=== PATIENT | male | born 1950 | race Caucasian/White ===

== ENCOUNTER 2020-04-17 10:51 | Inpatient (IN) ==
--- NOTE | 2020-04-17 11:55 | Emergency Department Note ---
Impression & Plan NSTEMI (non-ST elevated myocardial infarction), Precordial chest pain ED Provider Note NAME: VASQUEZ RYAN AGE: 69 SEX: M : 1950 ARRIVES VIA: Walk-In INFORMANT: [Patient] ED PROVIDER(S): [Norm Abraham MD] CHIEF COMPLAINT: Chest pain HISTORY OF PRESENT ILLNESS: Patient is a 69-year-old male who presents to the ED with a bout of chest pain that occurred 2 days ago. The pain came on at 2 AM, it woke him from sleep. The pain was pretty severe across the chest and went down both arms, his left arm was more painful than the right. He was not short of breath. There was no pleuritic pain. No nausea or sweating. The pain persisted with him throughout the entire day on but by the evening time, it seemed to go away. The patient has not had exertional chest pain or dyspnea. He has no known issues with his heart although his brother and father both have/had heart disease. The patient states that the day before he had his chest pain, he was swinging a mallet for a while but, this is not unusual activity for him really. He had no pain in his chest and he was not short of breath when he was doing his work. Yesterday evening, the patient had a low-grade temperature at 101 degrees. This did not persist and was only a one-time reading. The patient does not have a fever today, he has no cough or congestion. No known coronavirus exposures. He is without pain at present. He was advised to come to the ED for a checkup by his family. Someone in his family is a PA. Of note, the patient did have a stress test 2.5 years ago, he did very well. He is not diabetic, he does not have hypertension or high cholesterol REVIEW OF SYSTEMS: See HPI for pertinent positives and negatives. A total of ten systems were reviewed and were otherwise negative. PMHx/PSHx: See Below SOCIAL HISTORY: See Below. PHYSICAL EXAM: GENERAL: Patient is in no acute distress. HEENT: No acute trauma, normocephalic atraumatic, mucous membranes moist, no nasal congestion, no scleral icterus. NECK: No stridor, no adenopathy, no meningismus, trachea is midline. LUNGS: Clear to auscultation bilaterally, no wheeze, no rhonchi, breath sounds equal. Chest: Nontender chest wall. HEART: Without murmurs gallops or rubs, regular rate and rhythm. ABDOMEN: Soft, nontender, bowel sounds positive, no hernias, no peritonitis. EXTREMITIES: No cyanosis or edema, full range of motion of all the joints without pain or difficulty, no signs for acute trauma. NEUROLOGIC: Oriented x 3, no acute motor or sensory deficits, no focal weakness. SKIN: No rash, no jaundice, no diaphoresis. DIFFERENTIAL DIAGNOSIS: Cardiac ischemia, aortic dissection, pulmonary embolism, pneumothorax, pneumonia, pericarditis, myocarditis, esophageal rupture, GERD, cholecystitis, pancreatitis, musculoskeletal, as well as other pathologies. EMERGENCY DEPARTMENT COURSE/PROCEDURES: ECG: Indication was chest pain. The ECG shows a normal sinus rhythm with a rate of 71. There is no ST elevation, no PVCs. The QTc is 425. Continuous Cardiac Monitoring: An order was placed for continuous cardiac monitoring. The monitor shows a rate of 71 with normal sinus rhythm. MEDICAL DECISION MAKING: There is no leukocytosis or concerning anemia. There is a normal platelet count. No coagulopathy. D-dimer testing is negative. With a negative d-dimer and my low suspicion for PE, I will stop the work-up for this diagnosis. There is no significant electrolyte abnormality or kidney failure. Bilirubin is slightly elevated as is the AST. Alk phos was normal. There was no evidence for pancreatitis. ECG shows a normal sinus rhythm, no evidence for acute NC. Cardiac enzyme testing x1 was elevated with a troponin of 7.38. This troponin elevation is consistent with a recent NC. Chest film does not show mediastinal widening, pneumonia or pneumothorax. Patient was given oral aspirin. He was not having active chest pain so nitroglycerin was not felt warranted. Patient very likely had a NC 2 days ago. He is currently pain-free. The patient requires a hospital stay. I did speak with cardiology. I spoke with case management. The on-call hospitalist has been counseled. The patient is aware of all his findings and my concerns. Past Med/Surg History Medical History No significant past medical history Social History Smoking Status: Never smoker Hx Alcohol Use: Yes Alcohol type: beer Hx Substance Use: No Preferred Language: Nauruan Beliefs That Will Affect Care: None Current Living Situation: Spouse Other Information That Helps Us Care for You: No Feels Safe at Home: Yes Safety Concerns: Feels Safe At This Time Allergies Allergies Allergy/AdvReac Type Severity Reaction Status Date / Time No Known Allergies Allergy Unverified 04/17/20 12:17 Home Meds Home Medications Medication Instructions Recorded Confirmed No Known Home Medications 04/17/20 04/17/20 Results & Data (ED) Vital Signs Vital Signs - 24 hr 04/17/20 11:11 04/17/20 11:28 04/17/20 11:30 Temperature 36.4 C L Temperature Source Oral Pulse Rate 93 H 72 Pulse Rate [Apical] 70 Pulse Rate from SpO2 Sensor 72 Pulse Rhythm Regular Pulse Strength Normal Respiratory Rate 16 12 17 Respiratory Effort / Characteristics Non-Labored Respiratory Depth Normal Respiratory Pattern Regular Blood Pressure 159/95 H 142/98 H Blood Pressure [Right Arm] 154/90 H Blood Pressure Mean 116 106 Blood Pressure Mean [Right Arm] 111 Blood Pressure Position Sitting Pulse Oximetry 97 98 98 Oxygen Delivery Method Room Air Room Air Room Air Sepsis Recent Fever Within 48 Hours No Sepsis New/Unexplained Change in Mental Status N/A Sepsis Action Taken by Nursing No Action Required 04/17/20 12:00 04/17/20 12:30 Temperature Temperature Source Pulse Rate 67 64 Pulse Rate [Apical] Pulse Rate from SpO2 Sensor 61 60 Pulse Rhythm Pulse Strength Respiratory Rate 16 14 Respiratory Effort / Characteristics Respiratory Depth Respiratory Pattern Blood Pressure 157/95 H 145/96 H Blood Pressure [Right Arm] Blood Pressure Mean 111 102 Blood Pressure Mean [Right Arm] Blood Pressure Position Pulse Oximetry 97 97 Oxygen Delivery Method Room Air Room Air Sepsis Recent Fever Within 48 Hours Sepsis New/Unexplained Change in Mental Status Sepsis Action Taken by Long-Term Medications Current Medication List: was personally reviewed by me Laboratory Data Attestation: I reviewed the patient's lab results. Result diagrams: 04/17/20 11:34 04/17/20 11:34 Lab Results 04/17/20 04/17/20 04/17/20 Range/Units 11:34 11:34 11:34 WBC 8.48 (4.8-10.8) K/uL RBC 5.17 (4.7-6.1) M/uL Hgb 16.8 (14.0-18.0) g/dL Hct 49.8 (42-52) % MCV 96.3 (80-100) fL MCH 32.5 (25-34) pg MCHC 33.7 (32-36) g/dL RDW Std Deviation 47.4 H (36.4-46.3) fL RDW Coeff of [place] 13.4 (11.5-14.5) % Plt Count 185 (130-400) K/uL MPV 10.6 H (7.4-10.4) fL Immature Gran % (Auto) 0.1 % Neut % (Auto) 76.0 % Lymph % (Auto) 12.5 % Woodruff % (Auto) 10.8 % Eos % (Auto) 0.4 % Baso % (Auto) 0.2 % Neut # (Auto) 6.44 (1.4-6.5) K/uL Lymph # (Auto) 1.06 L (1.2-3.4) K/uL Woodruff # (Auto) 0.92 H (0.11-0.59) K/uL Eos # (Auto) 0.03 (0-0.5) K/uL Baso # (Auto) 0.02 (0-0.2) K/uL Immature Gran # (Auto) 0.01 (0.00-0.02) K/uL PT 10.9 (9.0-12.0) Seconds INR 1.0 (0.9-1.1) APTT 31.4 H (21.0-31.0) Seconds PTT Ratio 1.1 D-Dimer 230 (0-500) ug/L FEU Sodium 138 (136-145) mmol/L Potassium 3.7 (3.5-5.1) mmol/L Chloride 105 (98-107) mmol/L Carbon Dioxide 26 (21-32) mmol/L Anion Gap 7.0 (3-11) BUN 12 (7-18) mg/dl Creatinine 0.91 (0.6-1.4) mg/dl Est Cr Clr Drug Dosing 82.0 ml/min Est GFR ( Amer) 100.7 Est GFR (Non-Af Amer) 86.9 BUN/Creatinine Ratio 12.7 (10-20) Glucose 108 H (70-99) mg/dl Calcium 9.5 (8.5-10.1) mg/dl Total Bilirubin 1.1 H (0.2-1) mg/dl AST 69 H (15-37) U/L ALT 31 (12-78) U/L Alkaline Phosphatase 55 (45-117) U/L Troponin I 7.380 H* (0-0.045) ng/ml Total Protein 7.7 (6.4-8.2) gm/dl Albumin 3.7 (3.4-5.0) gm/dl Globulin 4.0 (2.5-4.0) gm/dl Albumin/Globulin Ratio 0.9 (0.9-2) Lipase 71 L (73-393) U/L Administered Medications Discontinued Medications Aspirin (Aspirin) 324 mg PO NOW STA Stop: 04/17/20 12:37 Last Admin: 04/17/20 12:42 Dose: 324 mg Documented by: [id number] Imaging Data Radiologist's Impression: XR chest 1V portable HISTORY: 69 years-old Male Chest Pain acute atypical chest pain COMPARISON: Chest radiograph 06/12/2015, chest CT 01/31/2013 TECHNIQUE: Portable AP view of the chest FINDINGS: Cardiomediastinal and hilar silhouettes are within normal limits. Unchanged calcified granuloma of the right upper lung. Mild pleural thickening of the lung apices. No pneumothorax, pleural effusion, airspace consolidation or overt pulmonary edema. Unchanged mild blunting of the lateral costophrenic angles. Bones appear grossly intact. IMPRESSION: No acute process. Blood Pressure Blood Pressure Findings: Elevated blood pressure Blood Pressure Disposition: further management by hospitalist Discharge Plan Visit Data *Final* Discharge Date/Time: 04/17/20 14:32 Chief Complaint: Cardiac Assessment Stated Complaint: FEVER, CHEST TIGHTNESS ED Provider: Norm Abraham Discharge Problem: NSTEMI (non-ST elevated myocardial infarction), Precordial chest pain Patient Disposition: Admitted As Inpatient Condition: Good Discharge Instructions Interventions: ED Discharge Assessment Last Done: 04/17/20 14:32
[2020-04-17 12:00] LABS: Basophils # (auto) 0.02 K/uL (0-0.2); Basophils % (auto) 0.2 %; Eosinophils # (auto) 0.03 K/uL (0-0.5); Eosinophils % (auto) 0.4 %; Hematocrit (blood only) 49.8 % (42-52); Hemoglobin 16.8 g/dL (14.0-18.0); Immature Granulocytes # (auto) 0.01 K/uL (0.00-0.02); Immature Granulocytes % (auto) 0.1 %; Lymphocytes # (auto) 1.06 K/uL (1.2-3.4); Lymphocytes % (auto) 12.5 %; Mean Corpuscular Hemoglobin 32.5 pg (25-34); Mean Corpuscular Hgb Conc 33.7 g/dL (32-36); Mean Corpuscular Volume 96.3 fL (80-100); Mean Platelet Volume 10.6 fL (7.4-10.4); Monocytes # (auto) 0.92 K/uL (0.11-0.59); Monocytes % (auto) 10.8 %; Neutrophils # (auto) 6.44 K/uL (1.4-6.5); Platelet Count 185 K/uL (130-400); RDW Coefficient of Variation 13.4 % (11.5-14.5); RDW Standard Deviation 47.4 fL (36.4-46.3); Red Blood Count 5.17 M/uL (4.7-6.1); White Blood Count 8.48 K/uL (4.8-10.8)
[2020-04-17 12:07] LABS: Albumin Level 3.7 gm/dl (3.4-5.0); BUN Creatinine Ratio 12.7 (10-20); Calcium 9.5 mg/dl (8.5-10.1); Est GFR (African American) 100.7; Est GFR (Non-African American) 86.9; Potassium 3.7 mmol/L (3.5-5.1)
[2020-04-17 12:18] LABS: D Dimer 230 ug/L FEU (0-500); Partial Thromboplastin Ratio 1.1; Partial Thromboplastin Time 31.4 Seconds (21.0-31.0); Prothrombin Time 10.9 Seconds (9.0-12.0)
--- NOTE | 2020-04-17 12:18 | XRay Report ---
XR chest 1V portable HISTORY: 69 years-old Male Chest Pain acute atypical chest pain COMPARISON: Chest radiograph 06/12/2015, chest CT 01/31/2013 TECHNIQUE: Portable AP view of the chest FINDINGS: Cardiomediastinal and hilar silhouettes are within normal limits. Unchanged calcified granuloma of th e right upper lung. Mild pleural thickening of the lung apices. No pneumothorax, pleural effusion, ai rspace consolidation or overt pulmonary edema. Unchanged mild blunting of the lateral costophrenic an gles. Bones appear grossly intact. IMPRESSION: No acute process. ACT 112: Negative or not required by law. The above report was generated using voice recognition software. It may contain grammatical, syntax o r spelling errors. Electronically signed by: Mele Salazar M.D. 04/17/2020 12:16 PM
[2020-04-17 12:28] LABS: Albumin Globulin Ratio 0.9 (0.9-2); Bilirubin,Total 1.1 mg/dl (0.2-1); Total Protein 7.7 gm/dl (6.4-8.2); Troponin I 7.38 ng/ml (0-0.045)
[2020-04-17] MEDS ORDERED: ASPIRIN CHEW 324 MG PO STA (12:36)
--- NOTE | 2020-04-17 13:02 | History & Physical Report ---
Date of Service April 17, 2020 Assessment & Plan (1) NSTEMI (non-ST elevated myocardial infarction): Admit to PCU Suspect troponin will trend down given remote chest pain on Start aspirin 81mg PO daily Start metoprolol 25mg PO BID Start atorvastatin 80mg PO QPM Start IV heparin low-dose with bolus TTE Lipid panel and HbA1C with AM labs EKG, nitroglycerin SL, call MD if recurrent pain Consult cardiology for cath ?Sunday Admission and Anticipated Discharge Date Admission Date: 04/17/2020 History of Present Illness Chief Complaint: Chest pain Primary Care Provider: Ghulam Bolivar MD Flako Villalpando is a 69-year-old male who presents to the emergency room on the advice of a family member after describing chest pain that he had on . A chest pain started at 2 AM 2 days ago. Central sternal chest pain, described a serious ache, radiated to left arm and wrist. It kept him awake rest of the night but gradually got better. Most pain for the starts. Lasted for multiple hours throughout but resolved around evening. He was using Advil for the pain. No associated nausea, diaphoresis, shortness of breath. After this he started having a fever of 101 F yesterday evening. He took Tylenol for this and improved overnight. No URI symptoms such as cough, shortness of breath, nasal congestion, loss of taste or smell. No known COVID- 19 exposure. No urinary symptoms such as dysuria, change in urinary frequency/color/smell. He has been chest pain-free since . He even notes yesterday he was able to run around finding his dog without any recurrence of the pain. In the ER he was given aspirin 324 mg p.o. Risk factors: Family history of his brother and father both with coronary artery disease. Non-smoker, no diabetes, hyperlipidemia or hypertension. He takes no routine medications. Allergies Allergy/AdvReac Type Severity Reaction Status Date / Time No Known Allergies Allergy Unverified 04/17/20 12:17 Home Medications Home Medications Medication Instructions Recorded Confirmed Type No Known Home Medications 04/17/20 04/17/20 History Past Med/Surg History Medical History No significant past medical history Surgical History No significant past surgical history Social History Smoking Status: Never smoker Hx Alcohol Use: Yes Alcohol type: beer Hx Substance Use: No Preferred Language: Ethiopian Beliefs That Will Affect Care: None Current Living Situation: Spouse Other Information That Helps Us Care for You: No Feels Safe at Home: Yes Safety Concerns: Feels Safe At This Time Review of Systems Review of Systems: All systems reviewed & are unremarkable except as noted in HPI & below Physical Exam Constitutional: WD/WN, vitals as above Eyes: PERRL, conjunctivae normal, anicteric sclerae ENMT: external ear and nose normal, oropharynx normal Neck: trachea midline, no thyromegaly Respiratory: normal respiratory effort, lungs clear to auscultation Cardiovascular: RRR, no murmur, no edema Gastrointestinal (Abdomen): normal bowel sounds, soft, nontender, no hepatosplenomegaly Musculoskeletal: no cyanosis or clubbing, extremities motor strength 5/5 Skin: no rashes, warm and dry Neurologic: moves all extremities and awake; no focal motor deficits and not confused Psychiatric: A+Ox3, euthymic affect Genitourinary: no CVA tenderness Lymphatic: no cervical or axillary lymphadenopathy Results & Data Results & Data ([facility]) Vital Signs (Past 12 Hours) Vital Signs Temp Pulse Pulse Resp BP BP Pulse Ox 04/17/20 12:30 64 14 145/96 H 97 04/17/20 12:00 67 16 157/95 H 97 04/17/20 11:30 72 17 142/98 H 98 04/17/20 11:28 70 12 154/90 H 98 04/17/20 11:11 36.4 C L 93 H 16 159/95 H 97 Diagnostic Findings XR chest 1V portable IMPRESSION: No acute process. ECG Indication: chest pain Rate (beats per minute): 71 Rhythm: normal sinus and other (Biatrial enlargement) Comparison ECG Date: from (August 08, 2002) Change: the following changes noted (Nonspecific T wave abnormality now evident in lateral leads) Code Status & VTE Plan Code Status Full VTE Prophylaxis Plan VTE Prophylaxis will be ordered: Yes PG Care Time/CCT Total # of Minutes Spent Total Time Spent with Patient: Total time spent is greater than 50% in coordination of care (as documented) at patient's floor/unit and/or counseling patient: Coding Level of Care Code 65570 Initial Inpt Care Lvl 3 Diagnoses NSTEMI (non-ST elevated myocardial infarction) I21.4
[2020-04-17] MEDS ORDERED: NITROGLYCERIN SL 0.4 MG/TAB TAB SL PRN (14:49)
[2020-04-17] MEDS ORDERED: ONDANSETRON INJ 2 MG/ML 2 ML VIAL IV PRN (14:49)
[2020-04-17] MEDS: ATORVASTATIN 40 MG TAB PO SCH (20:38)
[2020-04-17] MEDS: METOPROLOL TARTRATE 25 MG TAB PO SCH (20:39)
[2020-04-17 22:08] LABS: Appearance Urine Clear (Clear); Bilirubin Urine Negative (Negative); Blood Urine Negative (Negative); Color Urine Yellow; Glucose Urine UA Negative (Negative); Ketones Urine Negative (Negative); Leukocyte Esterase Urine Negative (Negative); Nitrite Urine Negative (Negative); Protein Urine Negative (Negative); Specific Gravity Urine 1.013 (1.000-1.030); Urobilinogen Urine Negative (Negative); pH Urine 8.5 (4.5-7.5)
[2020-04-18] MEDS ORDERED: HEPARIN IV BOLUS 4,000 UNITS in SYRINGE 0 ML IV ONE (02:45)
[2020-04-18] MEDS: HEPARIN SODIUM/DEXTROSE 25,000 UNITS/500 ML BAG IV SCH (02:54)
[2020-04-18 03:00] LABS: Basophils # (auto) 0.02 K/uL (0-0.2); Basophils % (auto) 0.2 %; Eosinophils # (auto) 0.03 K/uL (0-0.5); Eosinophils % (auto) 0.4 %; Hematocrit (blood only) 45.2 % (42-52); Hemoglobin 15.7 g/dL (14.0-18.0); Immature Granulocytes # (auto) 0.03 K/uL (0.00-0.02); Immature Granulocytes % (auto) 0.4 %; Lymphocytes # (auto) 1.67 K/uL (1.2-3.4); Lymphocytes % (auto) 20.5 %; Mean Corpuscular Hemoglobin 32.9 pg (25-34); Mean Corpuscular Volume 94.8 fL (80-100); Mean Platelet Volume 10.3 fL (7.4-10.4); Monocytes # (auto) 0.78 K/uL (0.11-0.59); Monocytes % (auto) 9.6 %; Neutrophils # (auto) 5.61 K/uL (1.4-6.5); Neutrophils % (auto) 68.9 %; Platelet Count 168 K/uL (130-400); RDW Coefficient of Variation 13.2 % (11.5-14.5); RDW Standard Deviation 45.8 fL (36.4-46.3); Red Blood Count 4.77 M/uL (4.7-6.1); White Blood Count 8.14 K/uL (4.8-10.8)
[2020-04-18 03:15] LABS: Partial Thromboplastin Ratio 1.2; Partial Thromboplastin Time 33.5 Seconds (21.0-31.0); Prothrombin Time 10.6 Seconds (9.0-12.0)
[2020-04-18 03:16] LABS: Calcium 8.7 mg/dl (8.5-10.1); Creatinine Clr Calc Pharmacy 83.8 ml/min; Est GFR (African American) 103.5; Est GFR (Non-African American) 89.3; Potassium 3.9 mmol/L (3.5-5.1)
[2020-04-18 03:19] LABS: Mean Corpuscular Hgb Conc 34.7 g/dL (32-36)
[2020-04-18 03:29] LABS: Troponin I 6.16 ng/ml (0-0.045)
[2020-04-18] MEDS: ASPIRIN 81 MG ECTAB PO SCH (08:23)
[2020-04-18] MEDS: METOPROLOL TARTRATE 25 MG TAB PO SCH ×2 (08:23→20:17)
--- NOTE | 2020-04-18 09:46 | Cardiology Consultation ---
Date of Consultation April 18, 2020 Assessment & Plan (1) NSTEMI (non-ST elevated myocardial infarction): He almost certainly had an NJ 2 days prior to admission, with his troponin trending down. Fortunately it seems to be small with no WMA on echo and minimal if any ECG change. Perhaps he had spontaneous lysis, perhaps a small vessel occluded. He should undergo catheterization. He is agreeable, I will schedule for tomorrow, hopefully early. History of Present Illness Reason for Consultation: NSTEMI Attending Physician: Sveta Umanzor DO History of Present Illness This is a 69-year-old male who presents to the ED with chest pain that occurred 2 days ago. It woke him from sleep at 2 AM. It radiated down both arms, his left arm was more painful than the right. He was not short of breath. There was no pleuritic pain. No nausea or sweating. The pain persisted with him throughout the entire day on but by the evening it had resolved. He did not have exertional chest pain or dyspnea. He has a family history of premature CAD. His initial troponin was 7.4 and is trending down, his initial ECG was normal, his ECG this AM showed a septal NJ which could be lead placement or real. His echo is normal. At the time of my evauation he is feeling well, no chest pain, no SOB. He didn't sleep well here. Allergies Allergy/AdvReac Type Severity Reaction Status Date / Time No Known Allergies Allergy Unverified 04/17/20 12:17 Home Medications Home Medications Medication Instructions Recorded Confirmed Type No Known Home Medications 04/17/20 04/17/20 History Patient History Medical History No significant past medical history Surgical History No significant past surgical history Social History Smoking Status: Never smoker Hx Alcohol Use: Yes Alcohol type: beer Hx Substance Use: No Preferred Language: Yemeni Beliefs That Will Affect Care: None Current Living Situation: Spouse Other Information That Helps Us Care for You: No Feels Safe at Home: Yes Safety Concerns: Feels Safe At This Time Review of Systems Review of Systems: All systems reviewed & are unremarkable except as noted in HPI & below Physical Exam Physical Exam: Constitutional: Alert, cooperative and in no distress. HEENT: Unremarkable Neck: No jugular venous distention, carotid pulses are normal and equal bilaterally without bruits. Pulmonary: Clear to auscultation bilaterally. Cardiac: Regular rhythm with no murmur, gallop or rub. Abdomen: Soft, nontender with normal bowel sounds. Extremities: No edema. Distal pulses intact. Neurologic: No focal findings. Gait is steady. Skin: No rash, ecchymoses or petechiae. Results & Data ([facility]) Vital Signs (Past 12 Hours) Vital Signs Temp Pulse Pulse Pulse Resp BP Pulse Ox 04/18/20 08:20 68 04/18/20 08:06 36.8 C 57 L 20 142/76 H 99 04/18/20 07:43 63 04/18/20 03:21 37.1 C 58 L 17 150/90 H 97 04/17/20 23:27 37.3 C 61 17 127/81 98 Laboratory Results Cardiac Enzymes 04/17/20 04/17/20 04/18/20 Range/Units 11:34 17:58 02:47 AST 69 H (15-37) U/L Troponin I 7.380 H* 6.240 H* 6.160 H* (0-0.045) ng/ml Coagulation 04/17/20 04/18/20 Range/Units 11:34 02:47 PT 10.9 10.6 (9.0-12.0) Seconds APTT 31.4 H 33.5 H (21.0-31.0) Seconds Lipids 04/18/20 Range/Units 02:47 Triglycerides 63 (0-150) mg/dl Cholesterol 163 (0-200) mg/dl HDL Cholesterol 81 mg/dl Cholesterol/HDL Ratio 2 CBC 04/17/20 04/18/20 Range/Units 11:34 02:47 WBC 8.48 8.14 (4.8-10.8) K/uL RBC 5.17 4.77 (4.7-6.1) M/uL Hgb 16.8 15.7 (14.0-18.0) g/dL Hct 49.8 45.2 (42-52) % Plt Count 185 168 (130-400) K/uL Neut # (Auto) 6.44 5.61 (1.4-6.5) K/uL Lymph # (Auto) 1.06 L 1.67 (1.2-3.4) K/uL Nash # (Auto) 0.92 H 0.78 H (0.11-0.59) K/uL Eos # (Auto) 0.03 0.03 (0-0.5) K/uL Baso # (Auto) 0.02 0.02 (0-0.2) K/uL Comprehensive Metabolic Panel 04/17/20 04/18/20 Range/Units 11:34 02:47 Sodium 138 140 (136-145) mmol/L Potassium 3.7 3.9 (3.5-5.1) mmol/L Chloride 105 106 (98-107) mmol/L Carbon Dioxide 26 28 (21-32) mmol/L BUN 12 13 (7-18) mg/dl Creatinine 0.91 0.87 (0.6-1.4) mg/dl Glucose 108 H 104 H (70-99) mg/dl Calcium 9.5 8.7 (8.5-10.1) mg/dl AST 69 H (15-37) U/L ALT 31 (12-78) U/L Alkaline Phosphatase 55 (45-117) U/L Total Protein 7.7 (6.4-8.2) gm/dl Albumin 3.7 (3.4-5.0) gm/dl Intake and Output 04/17/20 04/18/20 04/18/20 22:59 06:59 14:59 Intake Total 480 / 780 300 / 780 71.117 / 71.117 Output Total 200 / 200 Balance 280 / 580 300 / 580 71.117 / 71.117 Intake: IV 71.117 / 71.117 HEPARIN SODIUM/DEXTROSE 25,000 71.117 / 71.117 units In 500 ml @ 850 UNITS/HR 17 mls/hr IV .Q24H [facility] Rx#: [id number] Oral 480 / 780 300 / 780 Output: Urine 200 / 200 Other: # Unmeasured Voids 2 Diagnostic Findings Telemetry shows SR, no significant arrhythmia PG Care Time/CCT Total # of Minutes Spent Total Time Spent with Patient: Total time spent is greater than 50% in coordination of care (as documented) at patient's floor/unit and/or counseling patient: Coding Level of Care Code 92960 Inpt Consult Level 5 Diagnoses NSTEMI (non-ST elevated myocardial infarction) I21.4
--- NOTE | 2020-04-18 09:49 | XCELERA ---
[id number]
[2020-04-18 09:51] LABS: Partial Thromboplastin Ratio 2.9
[2020-04-18 09:55] LABS: Partial Thromboplastin Time 81.3 Seconds (21.0-31.0)
--- NOTE | 2020-04-18 14:05 | Hospitalist Progress Note ---
Date of Service April 18, 2020 Assessment & Plan (1) NSTEMI (non-ST elevated myocardial infarction): Start aspirin 81mg PO daily Start metoprolol 25mg PO BID Start atorvastatin 80mg PO QPM Start IV heparin low-dose with bolus Trop was 7.3 on admission, trending down ECHO with EF 65-70%, no structural issues noted Lipid panel WNL with LCL 69 and HDL 81 HbA1C pending EKG, nitroglycerin SL, call MD if recurrent pain Cardiology planning for cath on 04/19 Pt with FH of MT Admission and Anticipated Discharge Date Admission Date: April 17, 2020 Subjective Pt is feeling at his usual. He has not had return of chest pain since the initial episode on . He notes that he was able to do his usual activities the last few days outside of that, including running after his dog. He came to the ED at the insistence of his daughter, who is a PA. Pt denies fever, SOB, abd pain, n/v/c/d, LE pain or swelling. He states he is generally very active with [place] [address] biking as a common activity for him. Review of Systems Review of Systems: Pertinent positives and negatives reviewed in HPI--all others negative Physical Exam Constitutional: WD/WN, vitals as above Eyes: normal visual lima by confrontation and + anicteric sclerae Neck: normal visual inspection and trachea midline Respiratory: normal respiratory effort, lungs clear to auscultation Cardiovascular: Rate/Rhythm: regular rate and regular rhythm Gastrointestinal (Abdomen): Inspection/Auscultation: abdomen not distended Percussion/Palpation: abdomen soft; abdomen nontender Musculoskeletal: Head/Neck/Chest: normocephalic and head atraumatic negative for edema, peripheral pulses intact Skin: no rashes, warm and dry Neurologic: awake; not confused Speech / Cognition: normal speech Psychiatric: A+Ox3, euthymic affect Results & Data Results & Data ([facility]) Vital Signs (Past 12 Hours) Vital Signs Temp Pulse Pulse Pulse Resp BP Pulse Ox 04/18/20 12:10 36.8 C 70 18 126/74 98 04/18/20 08:20 68 04/18/20 08:06 36.8 C 57 L 20 142/76 H 99 04/18/20 07:43 63 04/18/20 03:21 37.1 C 58 L 17 150/90 H 97 PG Care Time/CCT Total # of Minutes Spent Total Time Spent with Patient: Total time spent is greater than 50% in coordination of care (as documented) at patient's floor/unit and/or counseling patient: Coding Level of Care Code 59886 Subseq Hosp Care Lvl 3 Diagnoses NSTEMI (non-ST elevated myocardial infarction) I21.4
[2020-04-18 16:37] LABS: Partial Thromboplastin Ratio 1.3; Partial Thromboplastin Time 36.7 Seconds (21.0-31.0)
[2020-04-18] MEDS ORDERED: HEPARIN IV BOLUS 4,500 UNITS in SYRINGE 0 ML IV STA (17:01)
[2020-04-18] MEDS: ATORVASTATIN 40 MG TAB PO SCH (20:16)
[2020-04-18 23:58] LABS: Partial Thromboplastin Time 54.5 Seconds (21.0-31.0)
[2020-04-19 06:52] LABS: Estimated Average Glucose 120 mg/dl; Hemoglobin A1C 5.8 % (4.5-5.6)
[2020-04-19] MEDS ORDERED: HEPARIN (PORCINE) 1000 UNIT/ML 10 ML (CATH LAB USE ONLY) ONE (08:46)
[2020-04-19] MEDS ORDERED: NiCARDipine HCL INJ 2.5 MG/ML 10 ML AMP ONE (08:46)
[2020-04-19] MEDS ORDERED: fentaNYL citrate 100 MCG/2 ML VIAL ONE (08:46)
[2020-04-19] MEDS ORDERED: MIDAZOLAM HCL 1 MG/ML 2ML VIAL ONE ×2 (08:46→09:56)
[2020-04-19] MEDS ORDERED: NITROGLYCERIN/D5W 100MCG/ML 20ML SYR ONE (08:47)
[2020-04-19] MEDS ORDERED: ATROPINE SULFATE 0.1 MG/ML 10ML SYR IV ONE (09:10)
--- NOTE | 2020-04-19 09:11 | Hospitalist Progress Note ---
Date of Service April 19, 2020 Assessment & Plan (1) NSTEMI (non-ST elevated myocardial infarction): Start aspirin 81mg PO daily metoprolol 25mg PO BID atorvastatin 80mg PO QPM, cardiology recommends brillinta Taken to cardiac lab with PCI on 04/19/20 : . 1. Severe proximal LAD disease (suspected culprit vessel). -60% hazy proximal LAD (FFR 0.75, 75% stenosis by IVUS with irregular plaque and possible thrombus) 2. Multivessel moderate nonobstructive CAD 50% latemid RCA 50 to 60% large OM 2 3. Normal intracardiac filling pressure 4. Successful PCI of proximal to mid LAD with single drug-eluting stent (4.0 x 18 mm [place]). Trop was 7.3 on admission, trending down ECHO with EF 65-70%, no structural issues noted Lipid panel WNL with LCL 69 and HDL 81 HbA1C 5.8 EKG, nitroglycerin SL, call MD if recurrent pain Pt with FH of NH Admission and Anticipated Discharge Date Admission Date: April 17, 2020 Subjective Patient seen after cardiac catheterization in his room and PCU his daughter and at the bedside he is having no discomfort his wrist band was in place at the site of access and was with good hemostasis and also good peripheral perfusion and neurological function Review of Systems Review of Systems: Mild distress and fatigue no headache, blurry or double vision no speech or swallowing issues no chest pain, pressure or palpitations no shortness of breath, cough or wheezes no abdominal pain, nausea or vomiting, diarrhea or constipation no dysuria, hematuria or frequency no focal joint pain or swelling no back pain, CVA tenderness or radicular pain no bruising, bleeding or rashes no focal signs of weakness or numbness or altered sensation no complaints or anxiety or depression Physical Exam Physical Exam: The patient appeared well nourished and normally developed. Vital signs as documented. Head exam is normocephalic atraumatic no scleral icterus Neck is without JVD, thyromegaly, or carotid bruits. Lungs are clear to auscultation, no focal loss of breath sounds Cardiac exam, Rhythm is regular.. No murmurs, rubs or gallops. Abdominal exam reveals normal bowel sounds, soft non tender, no masses Extremities are nonedematous and both pedal pulses are normal. Neurologic exam is alert and oriented, no focal loss of strength or sensation Skin is without bruises or rashes Psychologically is without concerns for anxiety or depression Results & Data Results & Data ([facility]) Vital Signs (Past 12 Hours) Vital Signs Temp Pulse Pulse Pulse Resp BP Pulse Ox 04/19/20 08:00 98.4 F 61 18 118/79 97 04/19/20 03:58 54 L 17 137/73 99 04/19/20 00:56 55 L 04/18/20 22:55 98.2 F 58 L 19 142/87 H 99 PG Care Time/CCT Total # of Minutes Spent Total Time Spent with Patient: Total time spent is greater than 50% in coordination of care (as documented) at patient's floor/unit and/or counseling patient: Coding Level of Care Code 00485 Subseq Hosp Care Lvl 2 Diagnoses NSTEMI (non-ST elevated myocardial infarction) I21.4
--- NOTE | 2020-04-19 09:12 | Pre Anesthesia Assessment ---
Date of Service April 19, 2020 Pre Sedation Assessment Vital Signs Temp Pulse Pulse Pulse Resp BP Pulse Ox 04/19/20 08:00 98.4 F 61 18 118/79 97 04/19/20 03:58 54 L 17 137/73 99 04/19/20 00:56 55 L 04/18/20 22:55 98.2 F 58 L 19 142/87 H 99 04/18/20 19:40 98.2 F 56 L 18 111/71 97 04/18/20 16:10 55 L 04/18/20 15:24 97.9 F 55 L 18 110/72 99 04/18/20 12:10 98.2 F 70 18 126/74 98 Cardiovascular RRR, no murmur, no edema Respiratory normal respiratory effort, lungs clear to auscultation Pre-Sedation Airway Assessment Smoking Status: Never smoker Hx Sleep Apnea: No Hx Difficult Intubation: No Short, Thick Neck: No Thyromental Distance: > or= 3.5 Finger Breadths Oral Cavity: + WNL Mallampati Class: III ASA: ASA3 NPO Status Date of Last Intake of Fluids: 04/18/20 Time of Last Intake of Fluids: 23:00 Date of Last Intake of Solid Food: 04/18/20 Time of Last Intake of Solid Foods: 23:00 Procedure Planning Contraindications for Sedation: none Current Medications Reviewed: Yes Notes The planned sedation has been discussed with the patient. Informed Consent was obtained. I have identified the patient, determined the appropriateness of sedation and have assessed the patient immediately prior to the procedure. All medicine(s) and interventions are by my order.
[2020-04-19] MEDS ORDERED: ADENOSINE IV SOLN 3 MG/ML 20 ML VIAL IV ONE (09:32)
[2020-04-19] MEDS ORDERED: TICAGRELOR 90 MG TAB PO ONE (10:28)
--- NOTE | 2020-04-19 10:49 | Post Anesthesia Assessment ---
Date of Service April 19, 2020 Post Sedation Assessment Vital Signs Temp Pulse Pulse Pulse Pulse Resp BP 04/19/20 10:35 53 L 14 148/90 H 04/19/20 08:00 98.4 F 61 18 04/19/20 03:58 54 L 17 04/19/20 00:56 55 L 04/18/20 22:55 98.2 F 58 L 19 04/18/20 19:40 98.2 F 56 L 18 04/18/20 16:10 55 L 04/18/20 15:24 97.9 F 55 L 18 04/18/20 12:10 98.2 F 70 18 BP Pulse Ox 04/19/20 10:35 94 04/19/20 08:00 118/79 97 04/19/20 03:58 137/73 99 04/19/20 00:56 04/18/20 22:55 142/87 H 99 04/18/20 19:40 111/71 97 04/18/20 16:10 04/18/20 15:24 110/72 99 04/18/20 12:10 126/74 98 Recovery Score Activity: Moves 4 extremities Respiration: Deep Breath/Cough Circulation: +/-20% PreAnes Value Consciousness: Fully Awake Oxygen Saturation: > 92% On Room Air Post Anesthesia Score: 10 Discharge Sedation Level of Care: Fast Track Phase II Post Sedation Plan On clinical assessment, the patient appears to have tolerated the sedation without complications. Patient is recovering as anticipated. Patient will continue to be monitored by nursing and may be discharged when sed ation discharge criteria are met per below protocol. Upon Completions of procedure up to 15 minutes continue every 5 minute vital signs and the P.A.R. score; then discharge to a Phase I or Fast Track to Phase II per the following guidelines: * Discharge Patient to appropriate Phase II area if PAR is 8 or greater or return to pre- procedure baseline. The post - procedure orders will be as directed. * If PAR score is less than 8 or not return to pre-procedure baseline then patient will follow Phase I monitoring till PAR is reached for Phase II. The Phase I may be done in procedure room or may call to secure a Phase I area. * If naloxone or flumazenil are used for reversal, hold in Phase I for continued monitoring from when last reversal dose was given for a minimum of 60 minutes or longer pending the nurse and/or physician discretion of patient condition before discharge to Phase II. Please call the Sedation Physician to re-evaluate and complete post-note for discharge to Phase II area. Do NOT discharge from procedure sedation or Phase 1 until post- sedation evaluation note is complete by procedure /sedation MD Sedation Discharge Instructions to be given to the patient at discharge to home.
--- NOTE | 2020-04-19 10:51 | Cardiac Catheterization ---
[employer] Data: Signals Intelligence Analyst Cardiac Status Clinical evaluation leading to the procedure CAD Presenation: Non STEMI Anginal Classification: CCS IV Heart Failure: No Cardiogenic Shock within 24 Hours: No Cardiac Arrest within 24 Hours: No Imaging Studies Past 6 Months: Yes Stress Studies Past 6 Months: No Diagnostic Physicians Name: Benjamin Holden MD Status: Elective Closure Device Percutaneous Entry Location: Radial Closure Device: Radial Band Recommendations: PCI without planned CABG PCI Indication: PCI for high risk Non-SUSAN Lesion Segment Name: proximal LAD Culprit Artery: Yes Stenosis Prior to Rx (%): 75 Chronic Total Occlusion: No IVUS: Yes FFR: Yes Ratio: less than or equal to 0.75% Pre-Procedure HUMERA Flow: 3 Previously Treated Lesion: No Lesion Complexity: Non-High/Non-C Lesion Length (mm): 15 Thrombus Present: Yes Bifurcation Lesion: Yes Guidewire Across Lesion: Stenosis Post-Procedure (%): 0 Post-Procedure HUMERA Flow: 3 Devices(s) Deployed: Yes Yes Intraprocedure Events Significant Disection: No Perforation: No Cardiac Cath Procedure Full Procedure Date April 19, 2020 Pre-Procedure Diagnosis Pre-Procedure Diagnosis: Non STEMI AUC Score AUC Score: 8 Post-Procedure Diagnosis Post-Procedure Diagnosis: Severe CAD and Successful PCI Procedure(s) Performed Procedure(s) Performed: Coronary Angiography, Left Heart Cath, IVUS and Fractional Flow [place] [employer] Benjamin Holden MD Orthopaedic Physician Assistant(s) Bill Estimated Blood Loss Estimated Blood Loss: 15 Medication(s) Medication(s): Fentanyl, Heparin, Lidocaine 1%, Nicardipine, Nitroglycerin and Versed Medication(s): Ticagrelor Summary of Findings Indication: High risk NSTEMI Access: 6 Fr slender right radial artery Catheters: Craig, EBU 3.5 guide Findings: LM -large caliber, angiographically normal LAD -medium caliber, 60% hazy proximal stenosis at takeoff of small first diagonal, 40% mid segment disease at the takeoff of large second diagonal, distal luminal regularities as wraps around apex. Large second diagonal with 40% ostial stenosis. Circumflex -medium caliber, mild diffuse proximal mid disease, 50 to 60% and large bifurcating OM 2. RCA -dominant, anterior takeoff, mild diffuse mid segment disease prior to 50% late-mid stenosis. 40% ostial right PDA stenosis, 50% stenosis in small right posterior AV branch LVEDP -11 FFR/IVUS of proximal LAD Left main cannulated with EBU 3.5 guide BMW wire placed into distal LAD ACIST FFR catheter placed into mid LAD FFR 0.75 Randolph IVUS catheter used to assess proximal LAD lesion and for vessel sizing. Noted to have a 75% irregular, mildly calcified plaque with questionable associated thrombus (MLA 3.4 mm). -- PCI -- Antithrombotic therapy: Heparin, ticagrelor Procedure: IVUS catheter removed Proximal LAD lesion predilated with 3.0 compliant balloon Dilated lesion stented with 4.0 x 18 mm siva drug-eluting Repeat IVUS showed well apposed but underexpanded stent extending from proximal LAD to just prior to takeoff of second diagonal Stent post-dilated with 4.0 noncompliant balloon IC vasodilators administered for spasm Post procedure HUMERA 3 flow, stent well expanded with minimal residual stenosis and no apparent cardiac complications. Arterial Closure: TR band Summary: 1. Severe proximal LAD disease (suspected culprit vessel). -60% hazy proximal LAD (FFR 0.75, 75% stenosis by IVUS with irregular plaque and possible thrombus) 2. Multivessel moderate nonobstructive CAD 50% latemid RCA 50 to 60% large OM 2 3. Normal intracardiac filling pressure 4. Successful PCI of proximal to mid LAD with single drug-eluting stent (4.0 x 18 mm [place]). 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 Any exceptions are noted below. [facility] Card Cath Procedure Codes Cardiac Catheterization Procedure 1: Cardiovascular Cath Procedures: 52885 Coronaries and LHC (+/-LV) Procedure 2: Cardiovascular Cath Procedures: 45575 (Doppler) Pressure Wire Therapeutic Services & Ancillary Proc Procedure 1: Cardiovascular Tx and Anc Procedures: 17655 IV Ultrasound (Coronary or Graft) Moderate Sedation Procedure 1: Sedation/Anesthesia: 39043 Mod Sedation by the same physician;Init15 Min Child Age 5 & Up Procedure 2: Sedation/Anesthesia: 26184 Mod Sedation by the same physician; Ea Add Minutes Stenting Procedure 1: Cardiovascular Stent Procedures: 88945 Perc transcatheter placement of intracoronary stent(s), with ang PG Care Time/CCT Total # of Minutes Spent Total Time Spent with Patient: Total time spent is greater than 50% in coordination of care (as documented) at patient's floor/unit and/or counseling patient:
[2020-04-19] MEDS: ASPIRIN 81 MG ECTAB PO SCH (11:14)
[2020-04-19] MEDS: HEPARIN SODIUM/DEXTROSE 25,000 UNITS/500 ML BAG IV SCH (11:14)
[2020-04-19] MEDS: METOPROLOL TARTRATE 25 MG TAB PO SCH ×2 (11:14→20:55)
[2020-04-19] MEDS ORDERED: SODIUM CHLORIDE 0.9% 1000ML 1,000 ML IV SCH ×2 (11:30)
--- NOTE | 2020-04-19 13:20 | Electrocardiogram Report ---
Test Reason : Blood Pressure : / mmHG Vent. Rate : 071 BPM Atrial Rate : 071 BPM P-R Int : 152 ms QRS Dur : 080 ms QT Int : 392 ms P-R-T Axes : 075 084 079 degrees QTc Int : 425 ms Normal sinus rhythm Biatrial enlargement Abnormal ECG When compared with ECG of 08-AUG-2002 14:10, No significant change Confirmed by John Covarrubias ([id number]) on 04/19/2020 1:20:13 PM Referred By: Confirmed By:John Covarrubias
--- NOTE | 2020-04-19 13:46 | Electrocardiogram Report ---
Test Reason : Blood Pressure : / mmHG Vent. Rate : 059 BPM Atrial Rate : 059 BPM P-R Int : 162 ms QRS Dur : 084 ms QT Int : 426 ms P-R-T Axes : 076 081 077 degrees QTc Int : 421 ms Sinus bradycardia Biatrial enlargement Septal infarct , age undetermined Abnormal ECG When compared with ECG of 17-APR-2020 11:27, (unconfirmed) Septal infarct is now Present Confirmed by John Covarrubias ([id number]) on 04/19/2020 1:46:45 PM Referred By: REFERRED SELF Confirmed By:John Covarrubias
[2020-04-19] MEDS: TICAGRELOR 90 MG TAB PO SCH (20:55)
[2020-04-19] MEDS: ATORVASTATIN 40 MG TAB PO SCH (20:58)
[2020-04-20] MEDS: Heparin IV Low Dose WITH Bolus IV SCH ×2 (07:11→07:27)
[2020-04-20] MEDS: ASPIRIN 81 MG ECTAB PO SCH (08:02)
[2020-04-20] MEDS: TICAGRELOR 90 MG TAB PO SCH (08:02)
[2020-04-20] MEDS: METOPROLOL TARTRATE 25 MG TAB PO SCH (08:02)
--- NOTE | 2020-04-20 08:46 | Cardiology Progress Note ---
Date of Service April 20, 2020 Assessment & Plan (1) NSTEMI (non-ST elevated myocardial infarction): He had a small MO prior to admission, there was no evidence of wall motion abnormalities and no significant cardiac dysfunction following the event. He should be on beta-blockade in the future. (2) CAD (coronary artery disease): He has coronary disease and had stent placement yesterday, he will need statin therapy. He does not have any other lifestyle risk factors, he is mostly vegetarian, he exercise regularly, he does not smoke. We should control his blood pressure as well. (3) HBP (high blood pressure): In general he has not had high blood pressure however he tells me his blood pressure has been gradually creeping up. It was little bit high here, I would recommend continuing metoprolol as an antihypertensive. Admission and Anticipated Discharge Date Admission Date: April 17, 2020 Subjective He is feeling well today, no chest discomfort, he is ready to go home. Physical Exam Physical Exam: Constitutional: Alert, cooperative and in no distress. Pulmonary: Clear to auscultation bilaterally. Cardiac: Regular rhythm with no murmur, gallop or rub. Abdomen: Soft, nontender with normal bowel sounds. Extremities: No edema. Skin: No rash, ecchymoses or petechiae. Results & Data ([facility]) Vital Signs (Past 12 Hours) Vital Signs Temp Pulse Pulse Resp BP Pulse Ox 04/20/20 07:56 36.7 C 53 L 18 137/86 97 04/20/20 03:42 52 L 17 115/88 99 04/20/20 00:35 56 L 04/19/20 23:50 36.7 C 55 L 19 108/74 97 Laboratory Results Intake and Output 04/19/20 04/20/20 04/20/20 22:59 06:59 14:59 Intake Total 3345 / 3827.45 241.05 / 3827.45 Balance 3345 / 3827.45 241.05 / 3827.45 Intake: IV 19992.45 41.05 / 2282.45 HEPARIN SODIUM/DEXTROSE 25,000 41.05 / 282.45 units In 500 ml @ 850 UNITS/HR 17 mls/hr IV .Q24H [facility] Rx#: [id number] Nss 1000ML 1,000 ml @ 72 mls/hr 1999 IV .[id number] [facility]INA Rx#:[id number] Oral 1345 / 1545 200 / 1545 Other: Weight 71.5 kg Diagnostic Findings Telemetry: Sinus bradycardia, 1 3 beat run of nonsustained ventricular tachycardia. PG Care Time/CCT Total # of Minutes Spent Total Time Spent with Patient: Total time spent is greater than 50% in coordination of care (as documented) at patient's floor/unit and/or counseling patient: Coding Level of Care Code 91299 Subseq Hosp Care Lvl 2 Diagnoses NSTEMI (non-ST elevated myocardial infarction) I21.4 CAD (coronary artery disease) I25.10 HBP (high blood pressure) I10
--- NOTE | 2020-04-20 18:26 | Discharge Summary ---
Date of Service April 20, 2020 Admission HPI Per Admitting Provider Flako Villalpando is a 69-year-old male who presents to the emergency room on the advice of a family member after describing chest pain that he had on . A chest pain started at 2 AM 2 days ago. Central sternal chest pain, described a serious ache, radiated to left arm and wrist. It kept him awake rest of the night but gradually got better. Most pain for the starts. Lasted for multiple hours throughout but resolved around evening. He was using Advil for the pain. No associated nausea, diaphoresis, shortness of breath. After this he started having a fever of 101 F yesterday evening. He took Tylenol for this and improved overnight. No URI symptoms such as cough, shortness of breath, nasal congestion, loss of taste or smell. No known COVID- 19 exposure. No urinary symptoms such as dysuria, change in urinary frequency/color/smell. He has been chest pain-free since . He even notes yesterday he was able to run around finding his dog without any recurrence of the pain. In the ER he was given aspirin 324 mg p.o. Risk factors: Family history of his brother and father both with coronary artery disease. Non-smoker, no diabetes, hyperlipidemia or hypertension. He takes no routine medications. Principal Diagnosis N STEMI status post drug-eluting stent left anterior descending artery Discharge Exam The patient appeared well Vital signs as documented. Lungs are clear to auscultation and appear unlabored Cardiac exam, Rhythm is regular.. No murmurs, rubs or gallops. Abdominal exam reveals normal bowel sounds, soft non tender, no masses Extremities are nonedematous and both pedal pulses are normal. Neurologic exam is alert and oriented, no focal loss of strength or sensation Skin is without bruises or rashes Psychologically is without concerns for anxiety or depression Discharge Data Allergies Allergy/AdvReac Type Severity Reaction Status Date / Time No Known Allergies Allergy Unverified 04/17/20 12:17 Consultations 04/17/20 12:50 ED Decision to Admit Stat 04/17/20 14:49 Consult Cardiology Routine 04/19/20 11:23 Consult Cardiac Rehabilitation Routine Procedures Performed Operation Date: 04/19/20 12:00 Actual Procedures p Cath, Left with Cors and Vent - Anatoliy Holden MD s Drug Eluting Stent SGl Vessel - Anatoliy Holden MD s Fraction Flow [place] SGL Ves - Anatoliy Holden MD s IVUS Coronary Single Vessel - Anatoliy Holden MD s Cineradiography w/Routine Exam - Anatoliy Holden MD Ordered Studies 04/19/20 08:41 CL Cath Imgs for PACS use only Stat 04/19/20 11:27 CL IVUS Coronary Single Vessel Routine Hospital Course (1) NSTEMI (non-ST elevated myocardial infarction): aspirin 81mg PO daily metoprolol 25mg PO BID atorvastatin 40mg PO QPM, cardiology recommends brillinta Taken to cardiac lab with PCI on 04/19/20 : . 1. Severe proximal LAD disease (suspected culprit vessel). -60% hazy proximal LAD (FFR 0.75, 75% stenosis by IVUS with irregular plaque and possible thrombus) 2. Multivessel moderate nonobstructive CAD 50% latemid RCA 50 to 60% large OM 2 3. Normal intracardiac filling pressure 4. Successful PCI of proximal to mid LAD with single drug-eluting stent (4.0 x 18 mm [place]). Trop was 7.3 on admission, trending down ECHO with EF 65-70%, no structural issues noted Lipid panel WNL with LCL 69 and HDL 81 HbA1C 5.8 Pt with FH of [place] Total Time Total Time Spent Total Time Spent (In Minutes): It required greater than 30 minutes to prepare this patient for discharge, the majority of the time spent was actually educating the patient the best bedside to talk about compliance with medications and medication choice between Brilinta and Plavix and continued supportive care regarding post myocardial infarction recovery Discharge Plan Discharge Items Patient Disposition: Home - Self-Care Reason For Visit: NSTEMI Discharge Diagnosis: non st elevation [place] heart attack with cardiac cath and stent placement Condition on Discharge: Good Activity: Per Instructions section Activity Comment: no intentional activity Non-emergency contact: Primary Substance Abuse Counselor Call non-emergency contact if: you have any medication questions Follow-up/Referrals: Anatoliy Holden MD [Physician] - 04/26/20 12:30 pm Ghulam Bolivar MD [Primary Care Provider] - 04/22/20 10:10 am Diet: Heart Healthy Addtl Attending Provider Instructions: please do not resume exercise until released by Cardiology ACTIVITY RECOMMENDATIONS: Excess manipulation of the wrist should be avoided for the next 24-48 hours. * No lifting over 2 pounds (approximately a 1/2 gallon of milk) with the utilized arm for 24 hours. * No strenuous activity such as bowling or tennis for 3 days. * Keep the site of the procedure covered with a bandage for 24 hours. *You may shower the day after the procedure. Do not take a tub bath or submerge the puncture site in water for the next 3 days. *Do not operate any motorized equipment for 3 days. SPECIAL CARE INSTRUCTIONS: The site may be slightly bruised and sore following your procedure. Should any of the following occur, contact the Dr. who performed your procedure. 1. Redness/inflammation, swelling, chills, or fever, or colored drainage at procedure site within 3-7 days after your procedure. 2. Coldness, discoloration, ongoing numbness, severe pain, or swelling. Expect mild tingling of hand and tenderness at the puncture site for up to three days. If this persists beyond three days, or other symptoms develop, notify the Dr. who performed your procedure. BLEEDING: If the procedure site on your wrist begins to bleed, do not panic 1. Place 1 or 2 fingers firmly just slightly above the insertion site to stop the bleeding. You may be able to feel your pulse as you hold pressure. 2. Lift your finger after 5 minutes to see if the bleeding has stopped. 3. Once the bleeding has stopped, gently wipe the wrist area clean with a bandage. * If the bleeding from your wrist does not stop after 10 minutes, or if there is a large amount of bleeding or spurting, call 911 (do not drive yourself to the hospital). SKIN IRRITATION: * You may experience some redness and/or swelling in the area where radiation was administered. If any skin irritation occurs, please contact your family physician. FOLLOW UP VISIT: Keep any scheduled doctor appointments. Home Care: * Take your medications exactly as directed. Don't skip doses. * Remember that recovery after a heart attack takes time. Plan to rest for at lease 4-8 weeks while you recover. Then return to normal activity when your doctor says it's okay. * Ask your doctor about joining a heart rehabilitation program. * Tell your doctor if you are feeling depressed. Feelings of sadness are common after a heart attack, but it is important that you speak to someone if you are feeling overwhelmed by these feelings. * If you are having chest pain, call 911 for an ambulance. Do NOT drive yourself to the hospital. * Ask your family members to learn CPR. * Learn to take your own blood pressure and pulse. Keep a record of your results. Ask your doctor when you should seek emergency medical attention. He or she will tell you which blood pressure reading is dangerous. Lifestyle Changes: * Maintain a healthy weight. Get help to lose any extra pounds. * Cut back on salt. * Limit canned, dried, packaged, and fast foods. * Don't add salt to your food. * Season foods with herbs instead of salt when you cook. * Break the smoking habit. Enroll in a stop-smoking program to improve your chances of success. * Limit fatty foods. * Ask your doctor about having your lipid levels checked regularly. * Build up your activity according to your doctor's recommendation. * Ask your doctor when it's okay to resume sexual activity. * Tell your doctor about any erectile dysfunction (ED) medication you are taking. Some ED medications are not safe if you take certain heart medications. * Try to manage stress. Follow Up: It is important for you to keep your follow up appointments with your medical provider. Pending Studies at Discharge: No Stand-Alone Forms: My [facility], Smoking Cessation Medications and DC Order Prescriptions: New atorvastatin 40 mg Tablet 40 mg PO QPM Qty: 30 RF: 5 aspirin 81 mg Tablet,Delayed Release (Dr/Ec) 81 mg PO QAM Qty: 30 RF: 0 metoprolol tartrate 25 mg Tablet 25 mg PO BID Qty: 60 RF: 5 Brilinta 90 mg Tablet 90 mg PO BID Qty: 60 RF: 4 No Action No Known Home Medications RF: 0 Discharge Orders: Discharge Order (Routine); Ordered 04/20/20 Ordered By: Yonathan Peguero/Other Patient Handouts: Coronary Stents, CAD, Atorvastatin tablets, Ticagrelor oral tablet, Metoprolol tablets Admission Data Admit Date/Time: 04/17/20 12:59 Attending Provider: Yonathan Pfeiffer Admit Provider: Jasen eYe Primary Care Provider: Ghulam Bolivar Other Providers: Jasen Yee ; John Covarrubias Other Interventions: Discharge Summary Assessment (RN) Last Done: 04/20/20 11:34 DC Date/Time DO NOT enter until pt leaves facility: 04/20/20 12:35 Coding Level of Care Code D/C Day Management >30 mins Diagnoses NSTEMI (non-ST elevated myocardial infarction) I21.4
== END 2020-04-20 12:35 | disposition home or self-care (01) | DRG 247 ==
LOC: ED 10:51 → SUATTDRO 12:59 → 2E 12:59